=== PATIENT | male | born 1955 ===

== ENCOUNTER 2019-03-31 14:03 | Emergency (ER) | payer MEDICARE, SELFPAY ==
[2019-03-31 14:06] VITALS: BP 121/78; PULSE 67; RESP 18; TEMP 36.4; O2SAT 99; BMI 18.7
[2019-03-31 14:14] VITALS: BP 121/78; RESP 14
--- NOTE | 2019-03-31 14:16 | ED_ITS ---
HPI - Back Pain/Injury General: Chief Complaint: Back Pain/Injury Stated Complaint: Needs pain meds Time Seen by Provider: 03/31/19 14:13 Source: patient Mode of arrival: ambulatory Limitations: no limitations History of Present Illness: HPI Narrative: Patient comes in today for complaints of back pain. Patient has a chronic history of back pain and has been without his medication for several days now. Patient tried to get an appointment with urgent care and was set up for a appointment with Genesis Golden next week on the . Patient is needing medication to get him through until he can follow-up with Dr. Golden. Patient appears well. Patient appears in mild to moderate pain at rest. Review of Systems General: Reports: 10 or more systems reviewed and unremarkable except in HPI and below Musc: Reports: back pain PFS ED PFSH: Statuses (acute, chronic, etc) shown below reflect problem list status as previously entered and may not be historically accurate Social History Smoking and tobacco status: current every day smoker Physical Exam Const: COMMON NORMALS: no apparent distress and oriented x3 GENERAL APPEARANCE: cooperative HENMT: COMMON NORMALS: normocephalic, external ears normal, EAC's normal, TM's normal bilaterally and external nose normal HEAD & SCALP: normal to inspection and normocephalic FACE & SINUS: normal facial exam NOSE: external nose normal GENERAL EAR: hearing not grossly impaired EXTERNAL EAR: Yes external ears normal EXTERNAL AUDITORY CANAL: EAC's normal TYMPANIC MEMBRANE: TM's normal bilaterally MOUTH: oral and palatal mucosa normal THROAT: posterior oropharynx normal Eye: COMMON NORMALS: PERRL and EOMs intact bilaterally PUPIL: Yes PERRL Neck/C-Spine: COMMON NORMALS: full ROM and no lymphadenopathy Lymph: LYMPHATIC: no lymphedema noted Chest: COMMONS NORMALS: inspection of chest normal and palpation of chest normal Resp: COMMON NORMALS: normal respiratory effort and clear to auscultation bilaterally AUSCULTATION: clear to auscultation bilaterally Cardio: COMMON NORMALS: regular rate and regular rhythm RATE: regular rate RHYTHM: regular rhythm GI: COMMON NORMALS: normal to inspection, nondistended, normoactive bowel sounds and non-tender : COMMON NORMALS: Yes no CVA tenderness BLADDER/KIDNEY EXAM: Yes no CVA tenderness Back/Pelvis: COMMON NORMALS: no CVA tenderness LUMBAR SPINE/LOWER BACK: Yes ROM limited (limited flexion) and Yes lumbar spinal tenderness Extremity: COMMON NORMALS: normal to inspection GENERAL: No edema Neuro: COMMON NORMALS: oriented x3, moves all extremities and no focal motor deficits Psych: COMMON NORMALS: mental status grossly normal and cooperative Skin: COMMON NORMALS: no rashes or lesions noted GENERAL SKIN EXAM: no rashes or lesions noted Course Vital Signs: Vital signs: Vital Signs Temperature 97.5 F L 03/31/19 14:06 Pulse Rate 67 03/31/19 14:06 Respiratory Rate 14 03/31/19 14:14 Blood Pressure 121/78 03/31/19 14:14 Pulse Oximetry 99 03/31/19 14:06 MDM - Back Pain/Injury MDM Narrative: Medical decision making narrative: Patient comes in for being out of medication due to recent move to the area. On exam patient appears well. Patient does have tenderness and decreased flexion of the lumbar spine. No obvious injury is noted. Skin is warm and dry color is pink. Respirations are even lungs are clear to auscultation. Differential diagnosis includes chronic back pain, intervertebral disc degeneration, facet arthropathy, arthritis. Reviewed exam with patient with recommendations for follow-up appointment with Dr. Golden in 1 week. Patient reports understanding agreed to plan and need for follow-up. Discharge Plan Discharge Patient Disposition: Home, Self-Care Clinical Impression: Low back pain Qualifiers: Chronicity: chronic Back pain laterality: unspecified Sciatica presence: without sciatica Qualified Code(s): M54.5 - Low back pain Condition: Stable Prescriptions: New hydrocodone-acetaminophen 5-325 mg tablet 1 tab PO Q6H PRN (Reason: pain) Qty: 20 RF: 0 No Action oxycodone 15 mg Tablet 15 mg PO Q6H PRN (Reason: Pain) RF: 0 Discharge Orders: Discharge Order (Routine); Ordered 03/31/19 Ordered By: Otoniel Asencio Discharge Diet: Usual diet Discharge Activity: Resume usual activity Patient Instructions: Chronic Back Pain (ED) Activity Restrictions/Additional Instructions: Activity as tolerated Acetaminophen and ibuprofen for breakthrough pain Drink plenty of water with medications Follow-up with primary care in one week Keep appointment as scheduled Coding Level of Care Code ED Barrel Polisher for Maria De Jesus Machuca
[2019-03-31 14:24] VITALS: BP 144/83; PULSE 68; RESP 14; TEMP 36.8; O2SAT 100
== END 2019-03-31 14:33 | disposition home or self-care (01) ==
LOC: ER 14:50
PROVIDERS: Emergency Provider Nurse Practitioner Family
DX: G89.29 Other chronic pain (principal); M54.5 Low back pain; F17.210 Nicotine dependence, cigarettes, uncomplicated
CPT/HCPCS: 99281; 99283

== ENCOUNTER → 2019-10-25 13:33 | Outpatient (BNVA) | payer MEDICARE, SELFPAY | PROVIDERS: PCP Nurse Practitioner; Visit Provider Family Medicine | DX: L03.115 Cellulitis of right lower limb (principal); M47.817 Spondylosis without myelopathy or radiculopathy, lumbosacral region; F17.219 Nicotine dependence, cigarettes, with unspecified nicotine-induced disorders | CPT/HCPCS: 86618; 86666; 86757 ==

== ENCOUNTER 2019-11-21 12:27 | Outpatient (CLI) | payer MEDICARE, MEDICAID, SELFPAY ==
--- NOTE | 2019-11-21 13:00 | XR_ITS ---
WS: [id number] LUMBAR SPINE: 3 VIEWS TECHNIQUE: AP, lateral and L5-S1 spot. HISTORY: chronic low back pain COMPARISON: None available. Increase in lumbar lordosis. Anterior 50% compression fracture of what is probably L2. L2 vertebroplasty cement within the vertebr al body. 5 mm retrolisthesis of L3 and L4. S1 appears partially lumbarized. Bones are significantly o steopenic. SI joints are symmetric bilaterally. No soft tissue abnormalities. XR/XR lumbar spine 2-3V* [id number] IMPRESSION: 1. 50% compression fracture with vertebroplasty at L2. 2. 5 mm retrolisthesis of L3 and L4. 3. Osteopenia.
== END 2019-11-21 12:28 | disposition home or self-care (01) ==
LOC: RADWPI 12:32
PROVIDERS: Family Provider Family Medicine; PCP Nurse Practitioner; Visit Provider Family Medicine
DX: G89.29 Other chronic pain (principal); S32.020A Wedge compression fracture of second lumbar vertebra, initial encounter for closed fracture; X58.XXXA Exposure to other specified factors, initial encounter; M85.88 Other specified disorders of bone density and structure, other site
CPT/HCPCS: 72100

== ENCOUNTER 2021-01-31 07:07 | Emergency (ER) | payer MEDICARE, MEDICAID, SELFPAY ==
[2021-01-31 07:09] VITALS: BP 153/87; PULSE 69; RESP 18; TEMP 36.7; O2SAT 99; BMI 18.3
--- NOTE | 2021-01-31 07:16 | XR_ITS ---
WS: [id number] Exam: XR chest 1V portable [id number] Date/Time of Exam: 01/31/2021 7:26 AM Reason For Exam: dyspnea/cough Comparison 01/31/2021. The lungs are hyperinflated and clear. Normal cardiomediastinal structures and bony elements. No pleu ral effusion. XR/XR chest 1V portable [id number] IMPRESSION: 1. Pulmonary hyperinflation which may indicate COPD. No acute process identifie d.
--- NOTE | 2021-01-31 07:16 | ECG_ITS ---
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 [id number]
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
[2021-01-31 07:40] LABS: ABG PCO2 40.9 mmHg (35-45); ABG PH Result 7.42 (7.35-7.45); Alveolar-Arterial Oxygen Gradi 3.2 mmHg (5-10); Arterial Blood Gas Hematocrit 42.6 % (42-52); Base Excess ABG 2.1 mmol/L (-2.0-2.0); Blood Gas Allen Test Pos; Blood Gas Operator Identificat MONRO; Blood Gas Sample Site Radial, left; Blood Gas Sample Type Arterial; Carboxyhemoglobin 2.4 %THgb (0.4-20.1); HCO3 ABG 26.7 mmol/L (22-26); HGB O2 Sat 93.2 % (95-100); Ionized Calcium Level - ABG 1.2 mmol/L (1.1-1.4); Methemoglobin 0.9 % (0.4-1.5); Oxygen Device ROOM AIR; Oxygen Saturation ABG 96.4; PO2 ABG 76.9 mmHg (80.0-100.0); Potassium Level - ABG 3.9 mmol/L (3.5-5.0); Total Hemoglobin 13.9 g/dL (14-18)
--- NOTE | 2021-01-31 07:56 | PC.NURSE ---
Unable to obtain IV access or full blood draw, lab notified, phlebotomy to redraw, Dr. Benson notified, no IV needed at this time per Dr. Benson.
[2021-01-31 08:39] LABS: Basophils # 0.1 10^3/uL (0.0-0.1); Basophils % 1.2 %; Eosinophils # 0.2 10^3/uL (0.0-0.8); Eosinophils % 3.3 %; Hematocrit 50.6 % (42.0-52.0); Hemoglobin 15.8 g/dL (11.7-16.6); Lymphocytes # 1.6 10^3/uL (0.8-4.8); Mean Corpuscular HGB Conc 31.2 g/dL (30.0-36.0); Mean Corpuscular Hemoglobin 33.5 pg (28.0-34.0); Mean Corpuscular Volume 107.2 fl (80-94); Monocytes # 0.3 10^3/uL (0.2-0.9); Monocytes % 4.7 %; Neutrophils % 68.4 %; Nucleated Red Blood Cells % 0 %; Platelet Count 234 10^3/cmm (130-400); Red Blood Count 4.72 10^6/uL (4.1-5.3); Red Cell Distribution Width 13.9 % (12.1-15.1); White Blood Count 7.3 10^3/uL (4.0-10.0)
[2021-01-31 08:44] LABS: Slide Review Slide Review Perform
[2021-01-31 08:51] LABS: Alanine Aminotransferase 22 U/L (0-41); Albumin Level 4.3 g/dL (3.5-5.2); Alkaline Phosphatase 64 IU/L (40-130); Aspartate Amino Transferase 24 U/L (0-40); Blood Urea Nitrogen 15 mg/dL (8-23); Calcium 8.9 mg/dL (8.5-10.5); Carbon Dioxide 23 mmol/L (22-29); Chloride 104 mmol/L (98-107); Creatinine Clr Calc Pharmacy 79.7331; Globulin 3.2 g/dL (1.3-4.6); Glomerular Filtration Rate 113.2 mL/min (90-130); Glucose 102 mg/dL (65-115); Osmolality Calculated 291 mOsm/kg (285-295); Sodium 140 mmol/L (136-145); Total Bilirubin 0.5 mg/dL (0.15-1.2); Total Protein 7.5 g/dL (6.6-8.7)
[2021-01-31 09:49] VITALS: BP 133/83; PULSE 66; RESP 18; O2SAT 99
[2021-01-31 09:51] LABS: Anion Gap 17.1 (5-19); Potassium 4.1 mmol/L (3.5-5.1)
== END 2021-01-31 09:54 | disposition home or self-care (01) ==
PROVIDERS: Emergency Provider Family Medicine; PCP Family Medicine
DX: T59.811A Toxic effect of smoke, accidental (unintentional), initial encounter (principal); J44.9 Chronic obstructive pulmonary disease, unspecified; F17.210 Nicotine dependence, cigarettes, uncomplicated
CPT/HCPCS: 36415; 36600; 71045; 80051; 80053; 82330; 82805; 85025; 93005; 99283

== ENCOUNTER 2022-04-10 11:05 | Outpatient (CLI) | payer MEDICARE, MEDICAID, SELFPAY ==
--- NOTE | 2022-04-10 11:15 | XR_ITS ---
WS: [id number] Exam: XR cervical spine 4-5V [id number] Date/Time of Exam: 04/10/2022 11:33 AM Reason For Exam: neck pain No fracture or dislocation. Moderately severe degenerative change from C3 to C7. Disc space narrowing and mild spondylosis. Facet DJD at all levels. There is narrowing of the bony neuroforamina on the l eft at C6-7 and C7-T1. There is narrowing of the C6-7 neural foramina on the right. The odontoid is i ntact. Normal paraspinal soft tissues. Left carotid calcifications. There is hardware in the right ma ndible. XR/XR cervical spine 4-5V [id number] IMPRESSION: 1. Moderate degenerative changes. No fracture or malalignment.
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
== END 2022-04-10 11:06 | disposition home or self-care (01) ==
PROVIDERS: PCP Family Medicine; Visit Provider Family Medicine Adult Medicine
DX: S02.841A Fracture of lateral orbital wall, right side, initial encounter for closed fracture (principal); S02.31XA Fracture of orbital floor, right side, initial encounter for closed fracture; S02.32XA Fracture of orbital floor, left side, initial encounter for closed fracture; M50.323 Other cervical disc degeneration at C6-C7 level; V89.2XXA Person injured in unspecified motor-vehicle accident, traffic, initial encounter
CPT/HCPCS: 70200; 72050